=== PATIENT | female | born 2000 | race Caucasian/White ===

== ENCOUNTER 2023-08-17 17:00 | Outpatient (RCR) | payer MEDICAID, SELFPAY ==
--- NOTE | 2023-06-15 17:47 | HP.PTREVAL ---
Re-Evaluation Intro: MEG THORNE, It has been my pleasure to treat MUSA HOLLY over the last 9 visits for Generalized Weakness. Please see the progress note below for an update on the physical therapy plan of care! Subjective Subjective: My legs are feeling stronger, But my arms feel really weak Objective Objective/Function: MMT: B hip flex and knee flex= 4-/5. All other B LE MMT 5/5 throughout Stairs: Pt is able to negotiate 10 stairs without difficulty Pt is able to ambulate greater than 1000 feet without difficulty B UE's are 4/5 throughout with the exception of B shoulder flexion which is 4-/5 Plan Plan Plan: B LE and UE strengthening, balance and proprio, gait training, stair negotiation, core strengthening, bike, and HEP Balance/Gait/Functional tests Balance/Special Test Scores Lower Extremity Functional Score: 59 Goals Goals Goal 1:: Increase B LE strength x 1 grade to aid with stair negotiation Goal Time Frame: 4-6 Weeks Goal Progress: Progressing Goal 2:: Pt will be able to negotiate 1 flight of stairs reciprocally without the use of UE's Goal Time Frame: 4-6 Weeks Goal Progress: Goal Met Goal 3:: Pt will be able to ambulate greater than 1000 feet without a break to improve community mobility Goal Time Frame: 4-6 Weeks Goal Progress: Goal Met Goal 4:: I with HEP Goal Time Frame: 4-6 Weeks Goal Progress: Progressing Goal 5:: Increase B UE strength x 1 grade to aid with IADL's Goal Time Frame: 4-6 Weeks Goal Progress: New goal Anticipated Interventions Anticipated Interventions Patient/Client Instruction: Educate patient on: Condition and Plan of Care For the Purpose of:: To improve self management Therapeutic Exercise to Include: Strength training, Endurance training, Balance training, Flexibilty training, Gait and locomotor training, Active ROM and Dynamic Lumbar Stabilization For the Purpose of:: To improve muscle performance and motor function, To improve ability to perform ADL's and To increase tolerance to activity/condition/position Re-Evaluation Ending Re-evaluation ending: Please do not hesitate to contact me at [phone] by phone or if you have questions or concerns regarding this new plan of care! Sincerely, Charles Raymundo, PT, ATC
--- NOTE | 2023-07-13 17:57 | HP.PTREVAL ---
Re-Evaluation Intro: MEG THORNE, It has been my pleasure to treat MUSA HOLLY over the last 16 visits for Generalized Weakness. Please see the progress note below for an update on the physical therapy plan of care! Subjective Subjective: Pt reports she is still really weak at this time. Pt notes she is limited with her job secondary to not being able to lift heavier items. Objective Objective/Function: B LE MMT: hip flex, abd, and add 5/5 throughout. Knee flex and ext 4+/5 B UE MMT: grossly 4+/5 throughout Pt is able to ambulate 1000 feet without difficulty Pt is able to negotiate 10 stairs reciprocally without the use of UE's Pt is still limited at work secondary to UE weakness Plan Plan Plan: Focus mostly on UE strengthening at this time along with scap stab ex's Balance/Gait/Functional tests Balance/Special Test Scores Lower Extremity Functional Score: 77 Goals Goals Goal 1:: Increase B LE strength x 1 grade to aid with stair negotiation Goal Time Frame: 4-6 Weeks Goal Progress: Progressing Goal 2:: Pt will be able to negotiate 1 flight of stairs reciprocally without the use of UE's Goal Time Frame: 4-6 Weeks Goal Progress: Goal Met Goal 3:: Pt will be able to ambulate greater than 1000 feet without a break to improve community mobility Goal Time Frame: 4-6 Weeks Goal Progress: Goal Met Goal 4:: I with HEP Goal Time Frame: 4-6 Weeks Goal Progress: Progressing Goal 5:: Increase B UE strength x 1 grade to aid with IADL's Goal Time Frame: 4-6 Weeks Goal Progress: Progressing Goal 6:: Pt will return to work being able to perform all work requirements without limitation Goal Progress: New goal Anticipated Interventions Anticipated Interventions Patient/Client Instruction: Educate patient on: Condition and Plan of Care For the Purpose of:: To improve self management Therapeutic Exercise to Include: Strength training, Endurance training, Balance training, Flexibilty training, Gait and locomotor training, Active ROM and Dynamic Lumbar Stabilization For the Purpose of:: To improve muscle performance and motor function, To improve ability to perform ADL's and To increase tolerance to activity/condition/position Re-Evaluation Ending Re-evaluation ending: Please do not hesitate to contact me at [phone] by phone or if you have questions or concerns regarding this new plan of care! Sincerely, Charles Raymundo, PT, ATC
--- NOTE | 2023-11-10 08:43 | HP.PTDCSUM ---
Discharge Summary D/C summary: It has been my pleasure to treat MUSA HOLLY referred by MEG THORNE, with the diagnosis of Generalized Weakness for a total of 22 visit(s). Discharge Date: Please see the following information for a summary of their discharge status. Subjective Subjective: I am not in any pain now Pain LBP: Pain Intensity (Out of 10): 0 Overall Improvement % Improvement: 97 Objective Objective/Function: B UE and LE strength 5/5 throughout Pt is able to ambulate greater than 1000 feet without difficulty Pt is able to negotiate stairs at this time Pt is I with [facility] Goals Goal 1:: Increase B LE strength x 1 grade to aid with stair negotiation Goal Progress: Goal Met Goal 2:: Pt will be able to negotiate 1 flight of stairs reciprocally without the use of UE's Goal Progress: Goal Met Goal 3:: Pt will be able to ambulate greater than 1000 feet without a break to improve community mobility Goal Progress: Goal Met Goal 4:: I with HEP Goal Progress: Goal Met Goal 5:: Increase B UE strength x 1 grade to aid with IADL's Goal Progress: Goal Met Goal 6:: Pt will return to work being able to perform all work requirements without limitation Goal Progress: Goal Met Plan Plan: Discharge to [facility] D/C Information d/c sentence: If there are questions or concerns regarding this patient's physical therapy, please feel free to call me at [phone]. Thank you for the referral of this patient. Sincerely, Charles Raymundo, PT, ATC Balance/Gait/Functional tests Balance/Special Test Scores Lower Extremity Functional Score: 79 Improvement % Improvement: 97
== END 2023-08-17 19:00 | disposition home or self-care (01) ==
LOC: PT 17:00
DX: R26.89 Other abnormalities of gait and mobility (principal)
CPT/HCPCS: 97110; 97161; 97164

== ENCOUNTER 2024-04-01 09:26 | Emergency (ER) | payer MEDICAID, SELFPAY ==
[2024-04-01 09:28] VITALS: BP 115/92; PULSE 130; RESP 18; TEMP 36.8; O2SAT 98; BMI 20.7
--- NOTE | 2024-04-01 09:38 | EX.ED.GENINJ ---
HPI History of Present Illness Chief Complaint: Head Injury Informant: patient Onset/Context/Timing Onset: Today Mechanism/Context: Blunt Injury Quality of Pain: Throbbing Location: Head and right ankle Worsened by: Nothing Relieved by: Nothing Associated Symptoms Associated Symptoms: Positive for Parasthesias; Negative for Weakness, Loss of function, Inability to ambulate, Loss of consciousness or Amnesia Narrative Narrative: Patient presents with head injury and right ankle injury that occurred today. Patient was arrested and hit her head on the back of the police car. Patient also kicked the back seat of the police car. Patient denies any loss of consciousness. Patient describes her pain as throbbing. Patient states nothing makes it better and nothing makes it worse. Patient admits to some tingling in her third fourth and fifth toes on her right foot. Patient denies any other injuries. Patient states her tetanus is up-to-date. Tetanus Immunization: <5 years PFSH PFS Medical History no medical history no medical history Home Medications escitalopram oxalate 5 mg tablet (Lexapro) 5 mg PO DAILY 04/01/24 [History Last Taken Unknown] Allergy/AdvReac Type Severity Reaction Status Date / Time ondansetron [From Zofran] Allergy Intermediate Other Verified 04/01/24 09:28 Surgical History History of intestinal surgery Social History Smoking Status: Current every day smoker tobacco type: e-cigarettes ROS ROS ED Constitutional Constitutional ED: Denies chills or fever(s) Eyes Eyes: Denies blurry vision or change in vision ENT ENT ED: Denies rhinorrhea or sore throat Cardiovascular Cardiovascular: Denies chest pain or palpitations Respiratory/Chest Respiratory/Chest: Denies cough or dyspnea Gastrointestinal Gastrointestinal: Denies nausea or vomiting Genitourinary Genitourinary ED: Denies dysuria or hematuria Musculoskeletal Musculoskeletal: Denies back pain or neck pain Integumentary Denies abscess or rash Neurologic Neurologic: Denies headache(s) or weakness Allergic/Immunologic Allergic/Immunologic ED: Denies mouth swelling or urticaria EXAM Physical Exam Const Vital Signs: 04/01/24 09:28 04/01/24 11:27 Temperature 98.2 F Temperature Source Temporal Pulse Rate 130 H 126 H Respiratory Rate 18 16 Blood Pressure 115/92 H 137/99 H Blood Pressure Mean 99 111 Pulse Ox 98 97 Oxygen Delivery Method Room Air Room Air Positive well nourished and well developed General Appearance ED: well developed and NAD HEENT HEENT Narrative: There is a 3 cm full-thickness linear scalp laceration over the frontal scalp. There is no active bleeding noted. There is no bony crepitance or step-off noted. There are no foreign bodies visualized. There is mild gapping of the wound margins. Eyes PERRL and EOMs intact bilaterally Resp normal respiratory effort and clear to auscultation bilaterally Cardio regular rhythm Rate: tachycardic Extremity Extremity Narrative: There is tenderness, edema, and ecchymosis over the lateral aspect of the right ankle. There is no tenderness over the fifth metatarsal. There is no tenderness over the proximal fibula. Range of motion of the right ankle was limited in all motions secondary to pain. Strength is 5/5 bilaterally in the lower extremities. There is slight decrease sensation to light touch in the third, fourth, and fifth digits of the right foot. Patient is able to move all digits. Pedal pulses are equal bilaterally. Capillary refill was less than 2 seconds in all digits. General Extremety ED: Yes edema and tenderness General Extremity: edema Neuro oriented x3, CN's II-XII intact bilaterally, moves all extremities, no focal motor deficits and no sensory deficits noted Delaney Coma Scale: document GCS findings Spontaneous Obeys Commands Oriented 15 Sensorium / Orientation: alert Motor Exam: strength 5/5 throughout Psych mental status grossly normal PROC Procedures Lacerations Frontal scalp: Length: 3 cm Depth: Sub Q Shape: Linear Prep: Sterile Conditions and Chlorhexadine Laceration repair: Irrigated, Lidocaine with epi, Local and Wound explored Number of Sutures/Kristie: 6 Suture Information: - (Kristie) MDM MDM MDM Narrative Medical decision making narrative: Differential diagnosis includes intracranial bleeding, ankle fracture, sprain, contusion, scalp laceration, and closed head injury. CT scan of the brain will be obtained to assess for intracranial bleeding. X-rays of the right ankle will be obtained to assess for fracture and dislocation. Lab Data Attestation: I reviewed the patient's lab results. Lab results narrative: CBC was reviewed. There is a mild leukocytosis of 14.4. Remainder is within normal limits. Basic metabolic profile was reviewed. Potassium was slightly low at 3.2. The remainder was within normal limits. Serum hCG was reviewed and was negative. Serum alcohol level was reviewed and was elevated at 132. Repeat alcohol level was reviewed and was normal at 52. Labs: Laboratory Results - last 24 hr 04/01/24 04/01/24 11:39 14:35 WBC 14.4 H RBC 4.51 Hgb 13.8 Hct 39.5 MCV 87.6 MCH 30.6 MCHC 34.9 RDW Std Deviation 43.8 RDW Coeff of Huyen 13.9 Plt Count 411 MPV 9.2 Immature Gran % (Auto) 1.200 H Neut % (Auto) 77.5 H Lymph % (Auto) 16.6 L [place] % (Auto) 4.3 Eos % (Auto) 0.1 Baso % (Auto) 0.3 Absolute Neuts (auto) 11.2 H Absolute Lymphs (auto) 2.40 Nucleated RBC % 0 Sodium 143 Potassium 3.2 L Chloride 105 Carbon Dioxide 23.0 Anion Gap 15 BUN 3 L Creatinine 0.71 Estim Creat Clear Calc 115.36 Est GFR (MDRD) Af Amer 133 Est GFR (MDRD) Non-Af 110 BUN/Creatinine Ratio 4.2 L Glucose 102 Calcium 9.9 Serum , Qual NEGATIVE Ethyl Alcohol 132.0 52.0 Radiography Diagnostic Testing: Clinical Impression(s) from Imaging Studies Ankle X-Ray 04/01/24 10:12 IMPRESSION: Lateral soft tissue swelling with avulsion fracture of the lateral malleolus. Electronically Signed: Steve Harris MD at 10:33 EDT , Brain CT 04/01/24 10:12 IMPRESSION: Normal unenhanced CT scan of the brain. Electronically Signed: Steve Harris MD at 10:32 EDT , X-rays of the right ankle were obtained. There are 3 views. On my independent interpretation, there is a tiny avulsion fracture over the tip of the lateral malleolus. There is some soft tissue swelling noted. Radiologist also interpreted the x-rays and agrees. CT scan of the brain was obtained. There is no acute intracranial abnormality. This was interpreted by the radiologist and was also independently reviewed by myself. Management Discussion w/another healthcare provider: Behavioral health Treatment and Re-Evaluation Narrative: The scalp laceration was cleaned and irrigated with copious amounts normal saline. The wound was anesthetized with 1% lidocaine with epinephrine. The wound was closed with 6 simple kristie. Patient tolerated the procedure well. Bacitracin dressing was applied. On reevaluation, patient told nursing staff that she took a handful of melatonin and sleeping pills as a suicidal gesture. Police filled out a pink slip. Because of this, medical screening labs will be obtained. Patient will be evaluated by crisis. Care of the patient was turned over to the oncoming physician pending crisis evaluation. Discharge Plan Triage Chief Complaint: Head Injury Other Complaint: Lower Extremity Injury Overdose ED Provider: Shan Fuller Dx/Rx/DC Orders Prescriptions: No Action escitalopram oxalate [Lexapro] 5 mg tablet 5 mg PO DAILY Primary Care Provider: Care Physician,No Primary Referrals: [facility] Doctor,Out of [Non-Staff] -
--- NOTE | 2024-04-01 10:12 | CT_ITS ---
STUDY: CT BRAIN WITHOUT CONTRAST REASON FOR EXAM: Female, 23 years old. Head injury. RADIATION DOSAGE (If Supplied By Facility): CTDIvol = ( 44.99 ) mGy, DLP = ( 762.36 ) mGycm TECHNIQUE: Transaxial CT imaging of the brain was performed without administration of intravenous contrast material. Individualized dose optimization techniques were used for this CT. COMPARISON: No relevant priors. FINDINGS: Normal soft tissue structures. Normal calvarium. Normal size ventricles and extra-axial spaces for the patient''s age. Normal white matter tracts of the cerebral hemispheres. Normal basal ganglia and thalami. Normal brainstem. Normal cerebellum. There is no intracranial hemorrhage. There are no findings of an acute ischemic infarction. Normal visualized paranasal sinuses. CT/Brain/Head without Contrast IMPRESSION: Normal unenhanced CT scan of the brain. Electronically Signed: Steve Harris MD at 10:32 EDT ,
--- NOTE | 2024-04-01 10:12 | RAD_ITS ---
STUDY: X-RAY - RIGHT ANKLE REASON FOR EXAM: Female, 23 years old. Injury/Pain TECHNIQUE: 3 view(s) of the ankle. COMPARISON: None. FINDINGS: Normal visualized distal tibia and fibula. Avulsion fracture at the tip of the lateral malleolus. Normal tibiotalar articulation and ankle mortise. Normal visualized talus and calcaneus. The visualized subtalar, talonavicular, calcaneocuboid and tarsal articulations are normal. Lateral soft tissue swelling. RAD/Ankle min 3 Views IMPRESSION: Lateral soft tissue swelling with avulsion fracture of the lateral malleolus. Electronically Signed: Steve Harris MD at 10:33 EDT ,
[2024-04-01 11:27] VITALS: BP 137/99; PULSE 126; RESP 16; O2SAT 97
[2024-04-01] MEDS: LORazepam 1 MG Tablet PO (11:36)
[2024-04-01 11:56] LABS: Internal QC Validated? YES +Cl - CLEAR BKGD; Pregnancy, Serum, hCG Quali. NEGATIVE Negative
[2024-04-01 11:59] LABS: Absolute Neutrophil Count 11.2 X10^3/uL (2.0-7.7); Basophil# 0.04 X10^3/uL; Basophil% 0.3 % (0-1); Eosinophil# 0.01 X10^3/uL; Eosinophils% 0.1 % (0-5); Hematocrit 39.5 % (37-47); Hemoglobin 13.8 g/dL (12.0-15.0); Lymphocyte % 16.6 % (19-41); Mean Corp Hgb Conc 34.9 g/dL (32-36); Mean Corpuscular Hgb 30.6 pg (27.0-32.0); Mean Corpuscular Volume 87.6 fL (81-99); Mean Platelet Vol. 9.2 fl (6.2-12.0); Monocyte# 0.62 X10^3/uL; Monocyte% 4.3 % (0-10); NRBC Flagged by Analyzer 0 % (0-5); Neutrophil # 11.18 X10^3/uL (2.7-7.7); Neutrophil % 77.5 % (47-70); Platelet Count 411 K/mm3 (150-450); RBC Distribution Width CV 13.9 % (11.6-14.6); RBC Distribution Width SD 43.8 fl (35.1-43.9); Red Blood Count 4.51 M/mm3 (4.2-5.4); White Blood Count 14.4 K/mm3 (4.4-11.0)
[2024-04-01 12:02] LABS: Anion Gap 15 (5-15); BUN 3 mg/dL (7-18); BUN/Creat Ratio 4.2 RATIO (10-20); Calcium,Total 9.9 mg/dL (8.5-10.1); Chloride 105 mmol/L (98-107); Creatinine, Serum 0.71 mg/dL (0.55-1.02); EST Glomerular Filtration Rate 110 mL/min (>60); Est Glom Filt Rate - Afr Amer 133 mL/min (>60); Estimated Creatinine Clearance 115.36 ml/min; Glucose 102 mg/dL (74-106); Potassium 3.2 mmol/L (3.5-5.1); Sodium Level 143 mmol/L (136-145)
[2024-04-01] MEDS: Naproxen 500 MG Tablet PO (13:16)
[2024-04-01] MEDS: Lidocaine 1% /Epi 1:100 (20ml) 20 ML Vial INFILT (13:41)
[2024-04-01 17:10] VITALS: BP 133/60; PULSE 111; RESP 16; O2SAT 98
[2024-04-01] MEDS: Ziprasidone IM 20 MG/ML VIAL IM (18:48)
--- NOTE | 2024-04-01 18:52 | ED.RN ---
PATIENT'S BEHAVIOR HAS BEEN VERY ERRATIC DURING HER STAY. YELLING, SCREAMING, CRYING TO QUIET AND POLITE. CRISIS IN TO TALK WITH PATIENT. PATIENT BECAME VERY UPSET STATING, IF I HAVE TO STAY HERE I'LL FIGHT THE NURSES. I WANTED TO GO TO [facility]. PATIENT CONTINUED TO YELL AT STAFF. REDIRECTION GIVEN WITHOUT ANY HELP. SERGEY ORDERED. PATIENT STATED, I WANT THE MEDICATION TO KNOCK ME OUT. I DON'T WANT TO BE HERE. MEDICATION ADMINISTERED. TOLERATED WELL. SITTER AND MOM AT BEDSIDE.
[2024-04-01 18:59] VITALS: BP 139/83; PULSE 134; RESP 18; TEMP 36.1; O2SAT 97
[2024-04-01 19:10] LABS: Amphetamine Urine VISTA NEGATIVE (<1000 ng/mL); Barbiturate Urine VISTA NEGATIVE (< 200 ng/mL); Benzodiazepine Urine VISTA NEGATIVE (< 200 ng/mL); Cocaine Urine VISTA NEGATIVE (< 300 ng/mL); Ecstacy Urine VISTA NEGATIVE (< 500 ng/mL); Methadone Urine VISTA NEGATIVE (< 300 ng/mL); PCP Urine VISTA NEGATIVE (< 25 ng/mL); THC Urine VISTA POSITIVE (< 50 ng/mL); Vista UDS pH Range 5
--- NOTE | 2024-04-01 21:10 | NURSING ---
Pt resting comfortably at this time.
[2024-04-01 21:11] VITALS: PULSE 91
--- NOTE | 2024-04-01 23:34 | EKG12_ITS ---
Test Reason : Blood Pressure : / mmHG Vent. Rate : 121 BPM Atrial Rate : 121 BPM P-R Int : 152 ms QRS Dur : 078 ms QT Int : 324 ms P-R-T Axes : 064 077 -13 degrees QTc Int : 460 ms Sinus tachycardia T wave abnormality, consider inferior ischemia Abnormal ECG Confirmed by RUDY MILTON, ERIN ([id number]), editor house organ NOELLE MOSHER ([id number]) on 04/04/2024 11:45:52 AM Referred By: TOSHA Confirmed By:ERIN GRANT MD
[2024-04-02] MEDS: LORazepam 2 MG/ML Syringe IM ×2 (00:16→07:10)
[2024-04-02] MEDS: Ibuprofen 600 MG Tablet PO ×2 (00:31→07:22)
[2024-04-02 05:09] VITALS: RESP 18
--- NOTE | 2024-04-02 07:05 | EX.ED.DYSGE1 ---
HPI History of Present Illness Chief Complaint: Head Injury PFS PFS Medical History no medical history Home Medications escitalopram oxalate 5 mg tablet (Lexapro) 5 mg PO DAILY 04/01/24 [History Last Taken Unknown] Allergy/AdvReac Type Severity Reaction Status Date / Time ondansetron [From Zofran] Allergy Intermediate Other Verified 04/01/24 09:28 Surgical History History of intestinal surgery Social History Smoking Status: Current every day smoker tobacco type: e-cigarettes EXAM Physical Exam Const Vital Signs: 04/01/24 09:28 04/01/24 11:27 04/01/24 17:10 Temperature 98.2 F Temperature Source Temporal Pulse Rate 130 H 126 H 111 H Respiratory Rate 18 16 16 Blood Pressure 115/92 H 137/99 H 133/60 H Blood Pressure Mean 99 111 84 Pulse Ox 98 97 98 Oxygen Delivery Method Room Air Room Air Room Air 04/01/24 18:59 04/01/24 21:11 04/02/24 05:09 Temperature 97 F L Temperature Source Tympanic Pulse Rate 134 H 91 Respiratory Rate 18 18 Blood Pressure 139/83 H Blood Pressure Mean 101 Pulse Ox 97 Oxygen Delivery Method Room Air MDM MDM MDM Narrative Medical decision making narrative: Patient was turned over to me by Dr. Omalley @ 1230 Brief history: 23-year-old female being evaluated for suicidal ideation. Noted ankle avulsion fracture. MDM/plan: No acute events under my care. Patient was accepted to an inpatient psychiatric unit through the Crisis process. Just prior to signout at approximately 7 AM patient requested anxiety medication. She was given 2 mg of IM Ativan. Signed out to a.m. physician pending transport to psychiatric facility Lab Data Labs: Laboratory Results - last 24 hr 04/01/24 04/01/24 04/01/24 11:39 14:35 18:05 WBC 14.4 H RBC 4.51 Hgb 13.8 Hct 39.5 MCV 87.6 MCH 30.6 MCHC 34.9 RDW Std Deviation 43.8 RDW Coeff of Huyen 13.9 Plt Count 411 MPV 9.2 Immature Gran % (Auto) 1.200 H Neut % (Auto) 77.5 H Lymph % (Auto) 16.6 L [place] % (Auto) 4.3 Eos % (Auto) 0.1 Baso % (Auto) 0.3 Absolute Neuts (auto) 11.2 H Absolute Lymphs (auto) 2.40 Nucleated RBC % 0 Sodium 143 Potassium 3.2 L Chloride 105 Carbon Dioxide 23.0 Anion Gap 15 BUN 3 L Creatinine 0.71 Estim Creat Clear Calc 115.36 Est GFR (MDRD) Af Amer 133 Est GFR (MDRD) Non-Af 110 BUN/Creatinine Ratio 4.2 L Glucose 102 Calcium 9.9 Serum , Qual NEGATIVE Urine Opiates Screen POSITIVE H Urine Methadone Screen NEGATIVE Ur Barbiturates Screen NEGATIVE Ur Phencyclidine Scrn NEGATIVE Ur Amphetamines Screen NEGATIVE MDMA (Ecstasy) Screen NEGATIVE U Benzodiazepines Scrn NEGATIVE Urine Cocaine Screen NEGATIVE U Cannabinoids Screen POSITIVE H Ur Drug Screen Comment Ethyl Alcohol 132.0 52.0 Radiography Diagnostic Testing: Clinical Impression(s) from Imaging Studies Ankle X-Ray 04/01/24 10:12 IMPRESSION: Lateral soft tissue swelling with avulsion fracture of the lateral malleolus. Electronically Signed: Steve Harris MD at 10:33 EDT , Brain CT 04/01/24 10:12 IMPRESSION: Normal unenhanced CT scan of the brain. Electronically Signed: Steve Harris MD at 10:32 EDT , Discharge Plan Triage Chief Complaint: Head Injury Other Complaint: Lower Extremity Injury Overdose ED Provider: Shan Fuller Dx/Rx/DC Orders Prescriptions: No Action escitalopram oxalate [Lexapro] 5 mg tablet 5 mg PO DAILY Primary Care Provider: Care Physician,No Primary Referrals: [facility] Doctor,Out of [Non-Staff] -
--- NOTE | 2024-04-02 07:07 | ED.RN ---
attempted x3 to call report to [facility], no one would answer the phone,per the admission staff to just send the pt.
--- NOTE | 2024-04-02 08:32 | ED.RN ---
Nurse to nurse report attempted at this time. this rn on hold for 5 minutes with no answer. previous shift attempted to call report at shift change and was hung on twice. charge nurse Rinaa aware.
[2024-04-02] MEDS: Escitalopram Oxalate 10 MG Tablet 5 MG PO (08:45)
[2024-04-02 08:48] VITALS: BP 128/93; PULSE 96; RESP 18; TEMP 36.2; O2SAT 97
[2024-04-02 08:50] VITALS: BP 130/82; PULSE 111; RESP 20; TEMP 36.6; O2SAT 100
== END 2024-04-02 09:03 ==
LOC: ED 10:09
PROVIDERS: Emergency Provider Emergency Medicine; Visit Provider Emergency Medicine
DX: T50.992A Poisoning by other drugs, medicaments and biological substances, intentional self-harm, initial encounter (principal); S01.01XA Laceration without foreign body of scalp, initial encounter; F17.290 Nicotine dependence, other tobacco product, uncomplicated; W22.09XA Striking against other stationary object, initial encounter; M25.571 Pain in right ankle and joints of right foot
CPT/HCPCS: 12002; 70450; 73610; 80048; 80307; 80320; 84703; 85025; 93005; 99285; G0480; J3486